=== PATIENT | male | born 1980 | race Caucasian/White ===

== ENCOUNTER 2023-12-10 22:11 | Emergency (ER) | payer OTHER, SELFPAY ==
--- NOTE | 2023-12-10 22:43 | ER ---
Nurse's Notes [facility] Name: Maxx Linda Age: 43 yrs Sex: Male : 1980 Arrival Date: 12/10/2023 Time: 22:11 Bed 19 Private MD: Diagnosis: Unspecified hemorrhoids Presentation: 12/09 22:19 Chief complaint: Patient states: i have a hemmroid flare up and my rehab wants to get bm8 it checked to ensure that its not internal. Coronavirus screen: At this time, the client does not indicate any symptoms associated with coronavirus-19. Ebola Screen: Patient negative for fever greater than or equal to 101.5 degrees Fahrenheit, and additional compatible Ebola Virus Disease symptoms Patient denies exposure to infectious person. Patient denies travel to an Ebola-affected area in the 21 days before illness onset. No symptoms or risks identified at this time. Initial Sepsis Screen: Does the patient meet any 2 criteria? No. Patient's initial sepsis screen is negative. Does the patient have a suspected source of infection? No. Patient's initial sepsis screen is negative. Risk Assessment: Do you want to hurt yourself or someone else? Patient reports no desire to harm self or others. Onset of symptoms was December 10, 2023 at 19:00. 22:19 Method Of Arrival: Ambulatory bm8 22:19 Acuity: DIONE 4 bm8 Triage Assessment: 22:20 General: Appears in no apparent distress. comfortable, Behavior is calm, cooperative, bm8 appropriate for age. Pain: Denies pain. EENT: No deficits noted. No signs and/or symptoms were reported regarding the EENT system. Neuro: No deficits noted. Level of Consciousness is awake, alert, obeys commands, Oriented to person, place, time, situation, Appropriate for age. Cardiovascular: No deficits noted. Denies chest pain, Capillary refill < 3 seconds Patient's skin is warm and dry. Respiratory: No deficits noted. Airway is patent. GI: Reports hemmroid flare up. Historical: - Allergies: 22:20 No Known Allergies; bm8 - Home Meds: 22:20 None [Active]; bm8 - PMHx: 22:20 None; bm8 - PSHx: 22:20 None; bm8 - Immunization history:: Adult Immunizations unknown. - Infectious Disease History:: Denies. - Social history:: Smoking status: Patient reports the use of cigarette tobacco products, Patient uses alcohol, street drugs, marijuana, Methamphetamine (Meth). Screenin:58 [facility] ED Fall Risk Assessment (Adult) History of falling in the last 3 months, bm8 including since admission No falls in past 3 months (0 pts) Confusion or Disorientation No (0 pts) Intoxicated or Sedated No (0 pts) Impaired Gait No (0 pts) Mobility Assist Device Used No (0 pt) Altered Elimination No (0 pt) Score/Fall Risk Level 0 - 2 = Low Risk Oriented to surroundings, Maintained a safe environment, Educated pt \T\ family on fall prevention, incl call for assistance when getting out of bed. Abuse screen: Denies threats or abuse. Nutritional screening: No deficits noted. Tuberculosis screening: No symptoms or risk factors identified. Assessment: 22:58 Reassessment: SEE TRIAGE NOTE. bm8 Vital Signs: 22:19 BP 141 / 88; Pulse 88; Resp 16; Temp 97.8; Pulse Ox 100% ; Weight 71.21 kg; Height 6 bm8 ft. 0 in. ; Pain 0/10; 22:58 BP 135 / 81; Pulse 81; Resp 16; Temp 98; Pulse Ox 100% ; Pain 0/10; bm8 23:00 BP 138 / 86; Pulse 84; Resp 16 S; Pulse Ox 100% on R/A; jw7 22:19 Body Mass Index 21.29 (71.21 kg, 182.88 cm) bm8 22:19 Pain Scale: Adult bm8 22:58 Pain Scale: Adult bm8 ED Course: 22:13 Patient arrived in ED. im 22:15 Amado Petty MD is Attending Physician. ec2 22:20 Triage completed. bm8 22:20 Arm band placed on right wrist. bm8 22:42 Jemal Dao MD is Referral Physician. ec2 22:42 Jenny Hatfield RN is Primary Nurse. jw7 22:58 Patient has correct armband on for positive identification. Bed in low position. Side bm8 rails up X 1. Provided Education on: POST ER CARE. NIBP on. 22:58 No provider procedures requiring assistance completed. Patient did not have IV access bm8 during this emergency room visit. Administered Medications: No medications were administered Medication: 22:58 VIS not applicable for this client. bm8 Outcome: 22:42 Discharge ordered by . ec2 22:58 Discharged to home ambulatory, bm8 22:58 Condition: stable 22:58 Discharge instructions given to patient, Instructed on discharge instructions, follow up and referral plans. Demonstrated understanding of instructions, follow-up care, medications, Prescriptions given X 1, 23:00 Patient left the ED. bm8 Signatures: Jenny Hatfield RN RN jw7 Pam Bragg Edwin, MD MD ec2 Modesto Cook RN RN bm8
--- NOTE | 2023-12-10 22:43 | EDPHYS ---
Physician Documentation [facility] Name: Maxx Linda Age: 43 yrs Sex: Male : 1980 Arrival Date: 12/10/2023 Time: 22:11 Bed 19 Private MD: ED Physician Amado Petty HPI: 12/09 22:40 This 43 yrs old Male presents to ER via Ambulatory with complaints of ec2 Hemorrhoids. 22:40 Patient arrives today at the prompting of his rehab facility. Patient with history of ec2 hemorrhoids, had some blood in stool and was told to come be evaluated to make sure nothing else was concerning. Patient reports no anemia symptoms, denies any abdominal pain. Patient reports that he noticed a bulge in his rectum when he has a bowel movement, this worsens when he strains. Patient reports no other concerns.. Historical: - Allergies: 22:20 No Known Allergies; bm8 - Home Meds: 22:20 None [Active]; bm8 - PMHx: 22:20 None; bm8 - PSHx: 22:20 None; bm8 - Immunization history:: Adult Immunizations unknown. - Infectious Disease History:: Denies. - Social history:: Smoking status: Patient reports the use of cigarette tobacco products, Patient uses alcohol, street drugs, marijuana, Methamphetamine (Meth). ROS: 22:40 Constitutional: as per hpi ec2 Exam: 22:40 Constitutional: GEN: NAD Head: atraumatic Eyes: EOMI Ears: External ears are ec2 normal. CV: regular rate LUNGS: no respiratory distress ABD: non-distended. : Obvious external nonthrombosed hemorrhoid present, no active bleeding. SKIN: no evidence of rashes MSK: no evidence of trauma NEURO: moves all extremities equally Vital Signs: 22:19 BP 141 / 88; Pulse 88; Resp 16; Temp 97.8; Pulse Ox 100% ; Weight 71.21 kg; Height 6 bm8 ft. 0 in. ; Pain 0/10; 22:58 BP 135 / 81; Pulse 81; Resp 16; Temp 98; Pulse Ox 100% ; Pain 0/10; bm8 23:00 BP 138 / 86; Pulse 84; Resp 16 S; Pulse Ox 100% on R/A; jw7 22:19 Body Mass Index 21.29 (71.21 kg, 182.88 cm) bm8 22:19 Pain Scale: Adult bm8 22:58 Pain Scale: Adult bm8 MDM: 22:31 Patient medically screened. ec2 22:40 Data reviewed: vital signs. ED course: Patient arrives today for evaluation of a ec2 hemorrhoid. Examination remarkable for well-appearing nontoxic dividual who has a hemorrhoid evident on examination. Patient otherwise with appropriate hemodynamics, states that he has had this for some time and is here more so for medical clearance to return to his rehab facility. I have low suspicion for anemia given the patient's reassuring hemodynamics, patient has no active bleeding on my rectal examination. Additionally patient may have underlying diverticulosis which he can follow-up expectantly with GI. Differential diagnosis include hemorrhoids, diverticulosis. Will discharge home. Return precautions given.. Administered Medications: No medications were administered Disposition Summary: 12/10/23 22:42 Discharge Ordered Notes: Location: Home ec2 Condition: Stable ec2 Diagnosis - Unspecified hemorrhoids ec2 Followup: ec2 - With: Jemal Dao MD - When: - Reason: Recheck today's complaints Discharge Instructions: - Discharge Summary Sheet ec2 - High-Fiber Eating Plan ec2 - Hemorrhoids ec2 Forms: - Medication Reconciliation Form ec2 - Antibiotic Education ec2 - Prescription Opioid Use ec2 - Patient Portal Instructions ec2 - Leadership Thank You Letter ec2 Prescriptions: - Hydrocortisone 0.5 % Topical Cream - apply 1 application TOPICAL route every 12 hours As needed; 30 gram; Refills: ec2 0, Product Selection Permitted Signatures: Amado Petty MD MD ec2 Modesto Cook RN RN bm8
[2023-12-10 23:44] VITALS: O2SAT 100
[2023-12-11 00:06] VITALS: BP 138/86; TEMP 98
== END 2023-12-10 23:00 | disposition home or self-care (01) ==
LOC: ER 22:11
DX: K64.9 Unspecified hemorrhoids (principal)
CPT/HCPCS: 99283